=== PATIENT | female | born 1965 | race Caucasian/White ===

== ENCOUNTER 2022-03-27 11:35 | Outpatient (CLI) | payer OTHER, SELFPAY ==
--- NOTE | 2022-03-27 12:38 | XRR_ITS ---
PROCEDURE INFORMATION: Exam: XR Abdomen Exam date and time: 03/27/2022 12:39 PM Age: 57 years old Clinical indication: Hematuria, call tamiko with results TECHNIQUE: Imaging protocol: Radiologic exam of the abdomen. Views: Frontal supine view of the abdomen. 1 View. COMPARISON: CR XR KUB [id number] 04/04/2018 10:34 AM FINDINGS: Gastrointestinal tract: Normal. No bowel dilation. Organs: 4 mm calcified density overlying the left abdomen is lateral to the expected location of the left ureter. No definite ureteral calculus identified. Bones/joints: [id number] lumbar levoscoliosis. XR/XR KUB [id number] IMPRESSION: No acute findings.Non acute findings as described above.
== END 2022-03-27 11:36 | disposition home or self-care (01) ==
LOC: RAD 11:43
PROVIDERS: Family Provider Internal Medicine; Visit Provider Family Medicine
DX: R31.9 Hematuria, unspecified (principal); N39.0 Urinary tract infection, site not specified
CPT/HCPCS: 74018; 81000